=== PATIENT | female | born 1995 | race Caucasian/White ===

== ENCOUNTER 2019-06-19 20:19 | Emergency (ER) | payer SELFPAY ==
[2019-06-19 20:22] VITALS: BP 116/77; PULSE 87; RESP 17; TEMP 36.8; O2SAT 100; BMI 21.4
--- NOTE | 2019-06-19 22:17 | US_ITS ---
HISTORY: MISCARRIAGE ONE WEEK AGO PAIN AND SPOTTING ADDITIONAL HISTORY: None provided. COMPARISON: None TECHNIQUE: Transvaginal sonographic images of the pelvis were acquired utilizing grayscale, color Doppler and spectral Doppler imaging. FINDINGS: UTERUS: 8.2 x 5.7 x 5.3 cm ENDOMETRIUM: Small amount of fluid is seen in the endometrium. Echogenic focus noted in the endometrium toward the fundus on image 93/131 of the second cine loop. Endometrium was measured at 14.6 mm by the process supervisor, but this includes area of endometrial fluid, single layer endometrial thickness not measured and difficult to measure on the provided images. OVARIES: 2.9 x 2.1 x 2.6 cm on the right and 4.4 x 1.8 x 2.7 cm on the left. 1.6 cm left ovarian cyst. Flow demonstrated in the ovaries or spectral Doppler evaluation. ADNEXA: No mass FREE FLUID: None detected. US/Transvaginal Non- IMPRESSION: Heterogeneous endometrium with some fluid in the endometrial cavity, nonspecific. Clinical and beta hCG correlation recommended. at 0006 Reported and signed by: Jessica No MD Electronically Signed: Jessica No MD at 0:06 EST Tel , Service support ,
[2019-06-19 22:30] VITALS: RESP 15
[2019-06-19 22:43] LABS: Absolute Lymphocyte Count 2.11 X10^3/uL (0.83-4.51); Absolute Neutrophil Count 4.6 X10^3/uL (2.0-7.7); Basophil# 0.04 X10^3/uL; Basophil% 0.5 % (0-1); Eosinophil# 0.33 X10^3/uL; Eosinophils% 4.2 % (0-5); Hematocrit 35.8 % (37-47); Hemoglobin 11.7 g/dL (12.0-15.0); Lymphocyte # 2.11 X10^3/ul (4.0); Lymphocyte % 26.9 % (19-41); Mean Corp Hgb Conc 32.7 g/dL (32-36); Mean Corpuscular Hgb 28.4 pg (27.0-32.0); Mean Corpuscular Volume 86.9 fL (81-99); Mean Platelet Vol. 8.7 fl (6.2-12.0); Monocyte# 0.72 X10^3/uL; Monocyte% 9.2 % (0-10); NRBC Flagged by Analyzer 0 % (0-5); Neutrophil # 4.63 X10^3/uL (2.7-7.7); Neutrophil % 58.9 % (47-70); Platelet Count 224 K/mm3 (150-450); RBC Distribution Width CV 12.1 % (11.6-14.6); RBC Distribution Width SD 38.6 fl (35.1-43.9); Red Blood Count 4.12 M/mm3 (4.2-5.4); White Blood Count 7.9 K/mm3 (4.4-11.0)
--- NOTE | 2019-06-19 23:03 | ED.DCSUM_ITS ---
History of Present Illness Chief Complaint: Vag Bleeding Informant: Patient Pain: Pelvic Pain Onset: Today Context: Gradual Onset Quality: Cramping, Aching P: 1 Narrative: Patient is a 23-year-old female G3, P1 presenting with pelvic pain and vaginal bleeding after miscarriage. Patient states she is approximately 2 months when she has spontaneous miscarriage. She states she had bleeding for about 6 days and then stopped bleeding yesterday. Today she started bleeding again but also had worsening pelvic pain. She is not sure if she passed all products of conception. She has not seen an CAR LOADER. She did not have an ultrasound during the or after the miscarriage. She denies any dysuria or abnormal vaginal discharge. She does not remember when her last menstrual period was. She denies any other complaints at this time. is in the room and provides a lot of the history. He states that she does have a history of some liver issue but is not sure what it is. Past Medical History - Allergies and Home Meds Allergies/Adverse Reactions: Allergies No Known Allergies Allergy (Verified 06/19/19 20:20) Primary Care Physician: Care Physician,No Primary [Primary Care Provider] - Past Medical History: None Surgical History: no surgical history Lives: Spouse/ Significant Other Smoking Status: Never smoker Review of Systems General: Denies: Chills, Fever, Sweats Eyes: Denies: Visual changes - bilaterally, Diplopia ENT: Denies: Rhinorrhea, Sore throat Cardiovascular: Denies: Chest pain, Palpitations Respiratory: Denies: Dyspnea, Cough, Dyspnea on exertion Gastrointestinal: Reports: Abdominal pain. Denies: Nausea, Vomiting, Diarrhea, Melena, Hematochezia Genitourinary: Reports: - - Vaginal bleeding. Denies: Dysuria, Hematuria, Frequency Musculoskeletal: Denies: Back pain, Extremity Pain Skin: Denies: Rash, Wounds Neurological: Denies: Headache, Weakness, Numbness Physical Exam Vital Signs/Narrative: Vital Signs Temp Pulse Resp BP Pulse Ox 06/19/19 20:22 98.3 F 87 17 116/77 100 Inital Vital Signs reviewed: Yes General: Well nourished, Well developed Head: Normocephalic, Atraumatic Eyes: Perrl, EOMI ENT: Moist mucous membranes, No rhinorrhea Neck: Supple, Nontender Cardiovascular: Regular rate, Regular rhythm, No murmurs Respiratory: No distress, CTA bilaterally, Chest nontender Abdomen: Soft, Nondistended, Normal bowel sounds, Tender - Suprapubic. Negative for: Guarding, Rebound tenderness : Speculum exam: Normal external genitalia, No vaginal lesions, No vaginal discharge, No blood in vault, No active bleeding Bimanual exam: No cervical motion tenderness, Os closed, Normal size uterus, Nontender uterus Back: Nontender, Normal Inspection. Negative for: CVA tenderness Extremities: Nontender, No edema Skin: Normal color, No rash Neurological: Alert, Oriented x3, Cranial nerves II-XII grossly intact, Normal Strength, Normal Sensation Psychological: Normal affect Diagnostic/Tx/Re-eval Clinical Impression(s) from Imaging Studies Transvaginal US 06/19/19 22:17 IMPRESSION: Heterogeneous endometrium with some fluid in the endometrial cavity, nonspecific. Clinical and beta hCG correlation recommended. at 0006 Reported and signed by: Jessica No MD Electronically Signed: Jessica No MD at 0:06 EST Tel , Service support , Laboratory Data 06/19/19 06/19/19 06/19/19 22:25 22:25 22:25 WBC 7.9 RBC 4.12 L Hgb 11.7 L Hct 35.8 L MCV 86.9 MCH 28.4 MCHC 32.7 RDW Std Deviation 38.6 RDW Coeff of [place] 12.1 Plt Count 224 MPV 8.7 Immature Gran % (Auto) 0.300 Neut % (Auto) 58.9 Lymph % (Auto) 26.9 Lee % (Auto) 9.2 Eos % (Auto) 4.2 Baso % (Auto) 0.5 Absolute Neuts (auto) 4.6 Absolute Lymphs (auto) 2.11 Nucleated RBC % 0 Sodium Potassium Chloride Carbon Dioxide Anion Gap BUN Creatinine Estim Creat Clear Calc Est GFR (MDRD) Af Amer Est GFR (MDRD) Non-Af BUN/Creatinine Ratio Glucose Calcium Total Bilirubin AST ALT Alkaline Phosphatase Total Protein Albumin Globulin Albumin/Globulin Ratio HCG, Quant 54 H Urine Color Urine Clarity Urine pH Ur Specific [place] Urine Protein Urine Glucose (UA) Urine Ketones Urine Occult Blood Urine Nitrite Urine Bilirubin Urine Urobilinogen Ur Leukocyte Esterase Urine RBC Urine WBC Ur Squamous Epith Cells Urine Bacteria Urine Mucus Urine Test Blood Type TNP 06/19/19 06/19/19 06/19/19 22:25 22:25 23:30 WBC RBC Hgb Hct MCV MCH MCHC RDW Std Deviation RDW Coeff of [place] Plt Count MPV Immature Gran % (Auto) Neut % (Auto) Lymph % (Auto) Lee % (Auto) Eos % (Auto) Baso % (Auto) Absolute Neuts (auto) Absolute Lymphs (auto) Nucleated RBC % Sodium 140 Potassium 3.3 L Chloride 106 Carbon Dioxide 29.0 Anion Gap 5 BUN 8 Creatinine 0.72 Estim Creat Clear Calc 123.44 Est GFR (MDRD) Af Amer 128 Est GFR (MDRD) Non-Af 106 BUN/Creatinine Ratio 11.0 Glucose 91 Calcium 9.0 Total Bilirubin 0.70 AST 14 L ALT 22 Alkaline Phosphatase 63 Total Protein 7.8 Albumin 4.1 Globulin 3.7 Albumin/Globulin Ratio 1.1 HCG, Quant Urine Color Urine Clarity Urine pH Ur Specific [place] Urine Protein Urine Glucose (UA) Urine Ketones Urine Occult Blood Urine Nitrite Urine Bilirubin Urine Urobilinogen Ur Leukocyte Esterase Urine RBC Urine WBC Ur Squamous Epith Cells Urine Bacteria Urine Mucus Urine Test Positive H Blood Type O POSITIVE 06/19/19 23:30 WBC RBC Hgb Hct MCV MCH MCHC RDW Std Deviation RDW Coeff of [place] Plt Count MPV Immature Gran % (Auto) Neut % (Auto) Lymph % (Auto) Lee % (Auto) Eos % (Auto) Baso % (Auto) Absolute Neuts (auto) Absolute Lymphs (auto) Nucleated RBC % Sodium Potassium Chloride Carbon Dioxide Anion Gap BUN Creatinine Estim Creat Clear Calc Est GFR (MDRD) Af Amer Est GFR (MDRD) Non-Af BUN/Creatinine Ratio Glucose Calcium Total Bilirubin AST ALT Alkaline Phosphatase Total Protein Albumin Globulin Albumin/Globulin Ratio HCG, Quant Urine Color Yellow Urine Clarity Clear Urine pH 6.5 Ur Specific [place] 1.015 Urine Protein Negative Urine Glucose (UA) NEGATIVE Urine Ketones 5 H Urine Occult Blood 10 H Urine Nitrite Negative Urine Bilirubin Negative Urine Urobilinogen Normal Ur Leukocyte Esterase 100 H Urine RBC 0 SEEN Urine WBC 0 SEEN Ur Squamous Epith Cells 5-10 SEEN Urine Bacteria 0 SEEN Urine Mucus 0 SEEN Urine Test Blood Type - Medical Decision/Diagnostic Studies Patient evaluated for vaginal bleeding after a recent miscarriage. She not have any medical evaluation during her or her miscarriage. Hemoglobin is relatively normal. She has normal vital signs. Her abdomen is soft and only mildly tender in the pelvic region. Transvaginal ultrasound is consistent with a recent miscarriage. Her beta hCG is 53. Patient is Rh+ and does not require RhoGam. Did discuss with CAR LOADER on-call, Dr. Garza who recommends a repeat quant in a week to follow down to 0. Patient and are informed of this. They do have an CAR LOADER to follow-up with in [place] as well. Patient is counseled on signs and symptoms require return emergency room. She is instruc rob to take ibuprofen as needed for discomfort. Patient and verbalized agreement understand this plan. Patient discharged home in stable condition. ED Disposition - Plan for ED Patient: Disposition: Home or Assisted Living Diagnosis: Complete miscarriage Instructions: Miscarriage Referrals: Samir Garza MD [STAFF PHYSICIAN] - Additional Instructions: You were seen for evaluation after miscarriage. At this time it does not look like you are any longer. You might continue to have bleeding, spotting or abdominal pain. If the pain becomes severe or you start bleeding heavily such as soaking through 1 pad every hour for 3 consecutive hours please return to the emergency room. Our CAR LOADER recommend that you call the office to set up repeat blood work in 1 week. You do not need to return the emergency room for this blood work. Take Tylenol and/or ibuprofen as needed for any pain.
[2019-06-19 23:12] LABS: hCG Titer Quant., Serum 54 mIU/mL (1-3)
[2019-06-19 23:13] LABS: ALB/GLOB Ratio 1.1 RATIO (0.9-2.4); AST(SGOT) 14 U/L (15-37); Alanine Aminotransfer ALT/SGPT 22 U/L (13-56); Albumin, Serum 4.1 g/dL (3.2-5.0); Alkaline Phosphatase 63 U/L (45-117); Anion Gap 5 (5-15); BUN 8 mg/dL (7-18); Chloride 106 mmol/L (98-107); Creatinine, Serum 0.72 mg/dL (0.55-1.02); EST Glomerular Filtration Rate 106 mL/min (>60); Est Glom Filt Rate - Afr Amer 128 mL/min (>60); Estimated Creatinine Clearance 123.44 ml/min; Globulin 3.7 g/dL (2.2-4.2); Glucose 91 mg/dL (74-106); Potassium 3.3 mmol/L (3.5-5.1); Protein, Total 7.8 g/dL (6.4-8.2); Sodium Level 140 mmol/L (136-145)
[2019-06-19 23:58] LABS: Bacteria 0 SEEN /hpf (None Seen); Mucous, Urine 0 SEEN /hpf (<or=2+); Red Blood Cells-Urine 0 SEEN /hpf (0-5); White Blood Cells 0 SEEN /hpf (0-5)
[2019-06-20 00:03] LABS: Internal QC Validated? YES +Cl - CLEAR BKGD; Pregnancy, Urine Positive Negative
[2019-06-20 00:09] LABS: Color, Urine Yellow (Yellow); Glucose, Dipstick NEGATIVE (Normal); Ketone-Dipstick 5 mg/dl (Negative); Leukocyte Esterase-Dipstick 100 /ul (Negative); Nitrite-Dipstick Negative (Negative); Occult Blood-Urine 10 /ul (Negative); Protein-Dipstick Negative (Negative); Specific Gravity, Urine 1.015 (1.002-1.030); Urine Bilirubin Dipstick Negative (Negative); Urine Clarity Clear (Clear); Urine Urobilinogen Normal (Normal); Urine pH 6.5 (5.0 - 8.0)
[2019-06-20 00:10] LABS: Squamous Epithelial Cells - UA 5-10 SEEN /hpf (5-10)
--- NOTE | 2019-06-20 00:55 | ED.RN ---
MD AWARE OF POSITIVE RESULTS.
[2019-06-20 00:56] VITALS: BP 122/78; PULSE 87; RESP 15
== END 2019-06-20 00:57 | disposition home or self-care (01) ==
PROVIDERS: Emergency Provider Emergency Medicine
DX: O03.9 Complete or unspecified spontaneous abortion without complication (principal)
CPT/HCPCS: 76830; 80053; 81001; 81025; 84702; 85025; 86900; 86901; 99283; A4216

== ENCOUNTER → 2019-07-03 16:34 | Outpatient (CLI) | payer SELFPAY ==
[2019-06-19 20:22] VITALS: BMI 21.4
[2019-07-03 18:09] LABS: Internal QC Validated? YES +Cl - CLEAR BKGD; Pregnancy, Serum, hCG Quali. NEGATIVE Negative
== END ==
LOC: WOBLAB 16:35
PROVIDERS: Visit Provider Obstetrics & Gynecology
DX: O20.0 Threatened abortion (principal); Z3A.00 Weeks of gestation of pregnancy not specified
CPT/HCPCS: 36415; 84703